=== PATIENT | male | born 1965 | race Caucasian/White ===

== ENCOUNTER 2017-04-11 06:35 | Emergency (ER) | payer BC ==
[~2017-04-11] VITALS: Ht 180.3 cm; Wt 134.6 kg
[2017-04-11 07:22] LABS: HEMATOCRIT 50.8 % (38.0-50.0); MCHC 33.3 G/DL (30.0-36.0); MCV 84.2 FL (86-99); MEAN PLAT.VOLUME 9.9 uM^3 (9.0-12.4); PLATELET COUNT 182 K/uL (156-360); RBC DIS.WIDTH-CV 12.3 % (11.8-14.6); RBC DIS.WIDTH-SD 37.4 % (39-53); RED BLOOD COUNT 6.03 M/uL (4.00-5.50); WHITE BLOOD COUNT 7.3 K/uL (4.1-10.2)
[2017-04-11] MEDS ORDERED: TRULICITY1.5 MG/0.5 SC (07:38)
[2017-04-11] MEDS ORDERED: AMLODIPINE-VAL1 EAC2 PO (07:39)
[2017-04-11] MEDS ORDERED: GLIPIZIDE10 MG PO (07:39)
[2017-04-11] MEDS ORDERED: JANUVIA100 MG PO (07:40)
[2017-04-11] MEDS ORDERED: ASPIRIN81 M2 PO (07:40)
[2017-04-11 07:50] LABS: ANION GAP 6 MEQ/L (2-14); CHLORIDE 103 MEQ/L (99-109); DIRECT BILIRUBIN 0.1 mg/dL (0.0-0.3); POTASSIUM 4.2 MEQ/L (3.7-5.4); SAMPLE HEMOLYSIS CHECK 0; SAMPLE ICTERIC CHECK 0; SAMPLE LIPEMIA CHECK 0; SODIUM 137 MEQ/L (136-147); TOTAL BILIRUBIN 0.6 MG/DL (0.0-1.0)
[2017-04-11 07:56] LABS: ALKALINE PHOSPHATASE 61 IU/L (3-129); GFR ESTIMATE (CALCULATED) > 59 mL/min/; GLUCOSE 226 mg/dL (70-99); UREA NITROGEN (BUN) 14 mg/dL (9-23)
[2017-04-11 08:00] LABS: TROP-I INTERPRETATION NEGATIVE; TROPONIN-I < 0.01 ng/mL (0.0-0.30)
[2017-04-11 09:45] LABS: TROP-I INTERPRETATION NEGATIVE; TROPONIN-I < 0.01 ng/mL (0.0-0.30)
[2017-04-11 11:07] VITALS: BP 131/91
== END 2017-04-11 11:14 | disposition home or self-care (01) ==
LOC: EME 06:35
PROVIDERS: Emergency Medicine
DX: R07.89 Other chest pain (principal); I10 Essential (primary) hypertension; E11.9 Type 2 diabetes mellitus without complications
CPT/HCPCS: 71020; 76705; 80048; 80076; 84484; 85027; 93005; 99281; 99285